=== PATIENT | male | born 1955 | race Caucasian/White ===

== ENCOUNTER 2021-01-25 15:47 | Outpatient (REF) | payer MEDICARE, MEDICAID, SELFPAY ==
--- NOTE | ~2021-01-25 | US_ITS ---
EXAMINATION: ULTRASOUND EXTREMITY NONVASCULAR CLINICAL INFORMATION: Right knee pain in the popliteal fossa. COMPARISON: None TECHNIQUE: Limited imaging through the right popliteal fossa was performed. FINDINGS: There is a 1.3 x 1.0 x 1.3 cm nonvascular hypoechoic lesion in the portal fossa with few septations suggestive of Hernandez's cyst. There is no evidence of aneurysm. US/US extremity nonvascular massey IMPRESSION: 1. 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 2. No evidence of aneurysm.
== END 2021-01-25 15:48 | disposition home or self-care (01) ==
LOC: HO.US 15:47
PROVIDERS: Visit Provider Family Medicine
DX: M25.561 Pain in right knee (principal)
CPT/HCPCS: 76882

== ENCOUNTER 2021-02-28 08:22 | Outpatient (REF) | payer MEDICARE, MEDICAID, SELFPAY ==
--- NOTE | ~2021-02-28 | XR_ITS ---
EXAMINATION: XR KNEE, RIGHT CLINICAL INFORMATION: Knee pain COMPARISON: Knee radiographs August 21, 2018 and July 28, 2018 TECHNIQUE: 3 views of the right knee were obtained in addition to a standing AP view of the left knee. FINDINGS: No fracture or dislocation of the right knee. No suprapatellar joint effusion. There is severely decreased medial joint space height with mildly decreased lateral joint space height. Prominent tricompartmental marginal osteophytes are noted which appear slightly more prominent diffusely then imaging from 2018. Standing AP view of the left knee again demonstrate severe joint space loss of the medial joint compartment with prominent osteophytes, also progressed from 2018. XR/XR knee RT 3V IMPRESSION: Moderate to severe degenerative changes of both knees, most prominent within the medial compartments bilaterally. Degenerative changes demonstrate interval progression from 2018 imaging.
== END 2021-02-28 08:23 | disposition home or self-care (01) ==
LOC: HO.HOSX 08:22
PROVIDERS: Visit Provider Physician Assistant
DX: M17.11 Unilateral primary osteoarthritis, right knee (principal)
CPT/HCPCS: 73562; 99202

== ENCOUNTER 2023-09-16 11:30 | Outpatient (REF) | payer OTHER, SELFPAY ==
[2023-09-16 13:20] LABS: MANUAL DIFF FLAG NO
[2023-09-16 13:44] LABS: Basophils Percent Auto 0.8 % (0-2); Eosinophils Absolute Auto 0.2 X10*3/uL (0.0-0.4); Eosinophils Percent Auto 3.5 % (0-4); Hematocrit 45.5 % (42.0-52.0); Imm Gran Abs Auto 0.01 X10*3/uL (0.00-0.03); Imm Gran Pct Auto 0.2 % (0.0-0.4); Lymphocytes Absolute Auto 1.2 X10*3/uL (1.2-4.9); Lymphocytes Percent Auto 24.5 % (20-40); Mean Corpuscular Hemoglobin 30.7 pg (27.0-33.0); Mean Corpuscular Volume 93.2 fL (80.0-98.0); Mean Platelet Volume 11.9 fL (9.4-12.4); Monocytes Absolute Auto 0.4 X10*3/uL (0.1-1.2); Monocytes Percent Auto 7.2 % (2-11); Neutrophils Absolute Auto 3.1 x10*3/uL (2.0-8.3); Neutrophils Percent Auto 63.8 % (45-73); Platelet Count 181 X10*3/uL (160-400); Red Blood Count 4.88 X10*6/uL (4.60-5.80); Red Cell Distribution Width 13.3 % (11.0-16.0); White Blood Count 4.9 X10*3/uL (4.8-10.8)
[2023-09-16 13:52] LABS: Estimated Average Glucose 103 mg/dL; Hemoglobin A1c % 5.2 % (<6.0)
[2023-09-16 14:03] LABS: Alanine Aminotransferase 12 U/L (0-40); Albumin Level 4.1 g/dL (3.5-5.0); Alkaline Phosphatase 65 U/L (39-117); Anion Gap 10 (12-20); Aspartate Amino Transferase 17 U/L (5-37); Bilirubin Direct 0.3 mg/dL (0.0-0.5); Bilirubin Total 0.8 mg/dL (0.0-1.0); Blood Urea Nitrogen 21 mg/dL (9-16); Calcium 9.8 mg/dL (8.4-10.2); Carbon Dioxide 31 mmol/L (22-29); Chloride 106 mmol/L (96-108); Cholesterol 145 mg/dL (<200); Estimated Glomerular Filt Rate > 60; Glucose Random 101 mg/dL (60-115); HDL Cholesterol 58 mg/dL (>40); LDL Cholesterol Calculated 77 mg/dL (<100); Potassium 4.4 mmol/L (3.3-5.1); Sodium 143 mmol/L (135-145); Total Protein 7.3 g/dL (6.5-8.0); Triglycerides 53 mg/dL (<150)
[2023-09-16 14:22] LABS: TSH reflex Free T4 0.81 uIU/mL (0.32-4.0)
[2023-09-17 07:31] LABS: ~HepC Num1 1.08 S/CO (0.00-0.79); ~Hepatitis C Antibody Reactive (Nonreactive)
[2023-09-19 14:29] LABS: HCV Log PCR <1.18 NOT DETECTED Log IU/mL (NOT DETECTED); HepC Viral Load <15 NOT DETECTED IU/mL (NOT DETECTED)
== END 2023-09-16 11:31 | disposition home or self-care (01) ==
LOC: HO.HHCL 11:30
PROVIDERS: Visit Provider Family Medicine
DX: G47.33 Obstructive sleep apnea (adult) (pediatric) (principal); E78.00 Pure hypercholesterolemia, unspecified; I10 Essential (primary) hypertension; Z11.59 Encounter for screening for other viral diseases; R73.01 Impaired fasting glucose; Z13.1 Encounter for screening for diabetes mellitus
CPT/HCPCS: 36415; 80048; 80061; 80076; 83036; 84443; 85025; 86803; 87522

== ENCOUNTER 2025-01-14 09:16 | Outpatient (REF) | payer MEDICAID, SELFPAY ==
--- OUTSIDE RECORDS SUMMARY | 2025-01-14 10:45 | XMS_ITS | Clinical Summary ---
Author Organization [employer] Address [address] [facility] [address] [place] [address] Care Team Providers Care Manager Heavy Equipment Name Role Phone Casandra Buckner MD Primary Care Provider +1- [phone] Allergies Active Allergy Reactions Criticality Noted Date Comments Penicillins Other reaction(s): rash Medications acetaminophen (Tylenol 8 Hour) 650 MG ER tablet REPORTS PURCHASING OTC Active ketorolac (Acular) 0.5 % ophthalmic solution PLACE 1 DROP IN THE AFFECTED EYE THREE TIMES DAILY DIRECTED START 2 DAYS BEFORE YOUR SURGERY TAPER DIRECTED 11/19/19 24 Active atorvastatin (Lipitor) 40 MG tabletIndication s:Hypercholester olemia TAKE 1 TABLET BY MOUTH AT BEDTIME 90 tablet 3 10/21/20 24 Active lisinopril 40 MG tabletIndication s:Primary hypertension TAKE 1 TABLET BY MOUTH EVERY MORNING 90 tablet 3 10/21/20 24 Active terazosin (Hytrin) 2 MG capsuleIndicatio ns:Benign prostatic hyperplasia without lower urinary tract symptoms TAKE 1 CAPSULE BY MOUTH AT BEDTIME 90 capsule 3 10/21/20 24 Active Blood Pressure Monitoring (Blood Pressure Monitor Automat) deviceIndication s:Primary hypertension Check bp twice a week Largest cuff please 1 each 01/14/20 25 Active Blood Pressure kitIndications:P rimary hypertension Check blood pressure three times a week Largest cuff 1 kit 01/14/20 25 Active Blood Pressure Monitoring (Blood Pressure Monitor Automat) deviceIndication s:Primary hypertension Check bp twice a week 1 each 01/14/20 25 025 Discontinued Blood Pressure Monitoring (Blood Pressure Monitor Automat) deviceIndication s:Primary hypertension Check bp twice a week Largest cuff please 1 each 01/14/20 025 Discontinued Active Problems Problem Noted Date Diagnosed Date Dietary counseling 01/13/2025 Assessment & Plan (01/13/2025 3:16 PM EDT): Dietary Recommendations: Fruits, vegetables, whole grains, protein foods, and fat-free or low-fat dairy products are healthy choices. Eat different types of protein foods in your diet. This can include seafood, lean meats, poultry, beans, peas, lentils, nuts, seeds, soy products, and eggs. Limit foods and beverages higher in added sugars, saturated fat, and sodium. Exercise counseling 01/13/2025 Assessment & Plan (01/13/2025 3:16 PM EDT): Exercise Recommendations: At least 150 minutes of moderate-intensity physical activity per week, or an equivalent combination of moderate- and vigorous-intensity activity Pre-op exam 11/28/2023 Assessment & Plan (11/28/2023 8:32 PM EST): Patient is acceptable risk for surgery. Ok to proceed to operating room without further risk stratification. Other specified health status 09/10/2023 Overview (01/13/2025): -next physical exam due after 01/13/26 -eye care facilitated by none [facility] with Dr. Dillon Clifton -dental home is none, encourage to call [facility] -health care proxy paper work on file 11/29/23 Assessment & Plan (01/13/2025 3:16 PM EDT): -next physical exam due after 01/13/26 -eye care facilitated by gab [facility] with Dr. Dillon Clifton -dental home is none, encourage to call [facility] -health care proxy paper work on file 11/29/23 Assessment & Plan (09/16/2023 11:07 AM EST): -next physical exam due after 09/16/2024 -eye care facilitated by none, referral done 09/16/23 -dental home is none, encourage to call [facility] BPH (benign prostatic hyperplasia) 09/10/2023 Overview (01/13/2025): -well controlled Assessment & Plan (01/13/2025 3:24 PM EDT): -well controlled Chronic pain of right knee 05/18/202209/10 Dyslipidemia 05/18/2022 09/10/2023 Overview (01/13/2025): Lab Results Component Value Date CHOL 145 09/16/2023 TRIG 53 09/16/2023 HDL 58 09/16/2023 LDLCHOLCAL 77 09/16/2023 -continue lifestyle modifications -rechecking FLP and HFP 01/13/25 Assessment & Plan (01/13/2025 3:25 PM EDT): Lab Results Component Value Date CHOL 145 09/16/2023 TRIG 53 09/16/2023 HDL 58 09/16/2023 LDLCHOLCAL 77 09/16/2023 -continue lifestyle modifications -rechecking FLP and HFP 01/13/25 Assessment & Plan (09/16/2023 12:07 PM EST): Lab Results Component Value Date CHOLESTEROL 131 01/23/2021 LDLCHOL 63 01/23/2021 HDLCHOL 54 01/23/2021 CHOLHDLRAT 2.4 01/23/2021 -continue lifestyle modifications 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 Kelsey 2018 Assessment & Plan (09/16/2023 10:08 AM EST): Venous stasis dermatitis esolved with betamethasone diproprionate 0.05% ointment to be applied BID for 2 weeks and underwent (left saphenous vein ablation) left leg vein ablation with Dr. Kelsey 2018 Impaired fasting glucose 09/09/2014 023 Overview (01/13/2025): Lab Results Component Value Date HGBA1C 5.2 09/16/2023 HGBA1C 5.3 01/23/2021 GLUCOSE 101 09/16/2023 -rechecking A1C 01/13/25 Assessment & Plan (01/13/2025 3:26 PM EDT): Lab Results Component Value Date HGBA1C 5.2 09/16/2023 HGBA1C 5.3 01/23/2021 GLUCOSE 101 09/16/2023 -rechecking A1C 01/13/25 Hypertension 07/03/2012 09/10/2023 Overview (01/13/2025): -Blood pressure is not at goal, likely since pt did not take his meds this morning 01/13/25 -Given new BP monitor 01/13/25 -Referred to [facility] with our PharmDYAMILE 01/13/25 -Continue lifestyle modifications -Continue current medications -Ordered routine labs 01/13/25 Assessment & Plan (01/13/2025 3:29 PM EDT): -Blood pressure is not at goal, likely since pt did not take his meds this morning 01/13/25 -Given new BP monitor 01/13/25 -Referred to Collaborative Drug Therapy Managment Program with our PharmDYAMILE 01/13/25 -Continue lifestyle modifications -Continue current medications -Ordered routine labs 01/13/25 Assessment & Plan (09/16/2023 10:11 AM EST): -Blood pressure is at goal -Continue lifestyle modifications -Continue current medications Class 2 severe obesity due t o excess calories with serious comorbidity and body mass index (BMI) of 38.0 to 38.9 in adult 07/03/2012 09/10/2023 Overview (01/13/2025): Discussed weight, diet, exercise with patient in relation to health conditions. Used motivational interviewing to illicit change talk and established initial goals with patient. Assessment & Plan (01/13/2025 3:17 PM EDT): Discussed weight, diet, exercise with patient in relation to health conditions. Used motivational interviewing to illicit change talk and established initial goals with patient. Obstructive sleep apnea syndrome 07/03/2012 09/10/2023 Overview (01/13/2025): -has not used CPAP for many years, reports machine is not working well -referred back to sleep medicine 01/13/25 Assessment & Plan (01/13/2025 3:23 PM EDT): -has not used CPAP for many years, reports machine is not working well -referred back to sleep medicine 01/13/25 Assessment & Plan (09/16/2023 10:11 AM EST): -tolerating CPAP well Resolved Problems Problem Noted Date Diagnosed Date Resolved Date Hypercholesterolemia 01/13/2025 025 Physical exam 09/16/2023 01/12/2025 Overview (09/16/2023): -Normal growth and development. -Anticipatory guidance discussed. -Preventative care / harm reduction discussed. Assessment & Plan (09/16/2023 10:58 AM EST): -Normal growth and development. -Anticipatory guidance discussed. -Preventative care / harm reduction discussed. Hypercholesterolemia 07/03/2012 09/10/2023 023 Overview (09/16/2023): Lab Results Component Value Date CHOLESTEROL 131 01/23/2021 LDLCHOL 63 01/23/2021 HDLCHOL 54 01/23/2021 CHOLHDLRAT 2.4 01/23/2021 -continue lifestyle modifications Assessment & Plan (09/16/2023 10:09 AM EST): Lab Results Component Value Date CHOLESTEROL 131 01/23/2021 LDLCHOL 63 01/23/2021 HDLCHOL 54 01/23/2021 CHOLHDLRAT 2.4 01/23/2021 -continue lifestyle modifications Encounters Date Type Department Care Team Description 01/13/2025 2:45 PM EDT Office Visit [facility] [address] [place] [phone] Casandra Buckner MD Primary hypertension (Primary Dx); Obstructive sleep apnea syndrome; Dyslipidemia; Class 2 severe obesity due to excess calories with serious comorbidity and body mass index (BMI) of 38.0 to 38.9 in adult ([facility]); Dietary counseling; Exercise counseling; Other specified health status; Benign prostatic hyperplasia, unspecified whether lower urinary tract symptoms present; Impaired fasting glucose 01/13/2025 Travel 01/12/2025 Telephone [facility] [address] [place] [phone] Casandra Buckner MD chartprep 01/01/2025 Patient Outreach [facility] [address] [place] [phone] Casandra Buckner MD Pre-visit Planning (SDOH Screening negative and Tobacco screening negative) 11/13/2024 Telephone [facility] [address] [place] [address] Fatoumata [place], [place] January10/21/2024 Refill [facility] [address] [place] [phone] Casandra Buckner MD Hypercholesterolemia; Primary hypertension; Benign prostatic hyperplasia without lower urinary tract symptoms from Last 3 Months Immunizations Name Administration Dates Next Due Hep A, Adult 02/11/2014 Hep B, adult 02/11/2014,09/12/2009,08/10/2009 Influenza injectable quadriv alent IIV4 with preservative 07/28/2018,09/01/2015 Influenza injectable quadriv alent preservative free 11/29/2023 Influenza, IIV3, injectable 09/09/2014, 1 Influenza, Split (incl. jack fied surface antigen) 07/03/2012 Pneumococcal Conjugate PCV 13 09/09/2014 Pneumococcal Conjugate PCV 20 11/29/2023 TD (adult), 2 Lf tetanus tox oid, preservative free, adsorbed 08/10/2009 Tdap 09/16/2023,07/03/2012 Varicella 09/12/2009,08/10/2009 Zoster, Recombinant 11/25/2023,09/23/2023 Family History Medical History Relation Name Comments Diabetes Brother Skin cancer Brother heart problems Brother Diabetes Mother Diabetes Sister Stomach cancer Sister Relation Name Status Comments Brother Mother Sister Social History Tobacco Use Types Packs/Day Years Used Date Smoking Tobacco: Never Smokeless Tobacco: Never Tobacco Cessation:Counseling Given: Not Answered Depression Answer Date Recorded Patient Health Questionnaire-9 Score 0 01/13/2025 Patient Health Questionnaire-9 Score 0 01/13/2025 Last PHQ-9: Questionnaire Data Not on file 0 01/13/2025 Housing Stability Answer Date Recorded What is your housing situation today? I have mckayla sky 01/01/[address] you li ve. Do you have problems with any of the following? None of the above 01/01/2025 Food Insecurity Answer Date Recorded Within the past 12 months, y ou worried that your food would run out before you got money to buy more: Never True 01/01/2025 Within the past 12 months,th e food you bought just didn't last and you didn't have enough money to get more: Never True Transportation Answer Date Recorded In the past 12 months, has l ack of transportation kept you from medical appts, meetings, work or from getting things needed for daily living? No 01/01/2025 Utilities Answer Date Recorded In the past 12 months, has t he electric, gas, oil or water company threatened to shut off services in your home? No 01/01/2025 Depression Answer Date Recorded Patient Health Questionnaire-2 Score 0 01/13/2025 Internet Access Answer Date Recorded Internet Access Q1 No 01/01/2025 Internet Access Q2 I do not want or need it 12/06 Sex and Gender Information Value Date Recorded Sex Assigned at Male 09/03/2022 10:19 AM EDT Legal Sex Male 10:19 AM EDT Gender Identity Male 09/03/2022 10:19 AM EDT Sexual Orientation Straight 09/03/2022 10 :19 AM EDT Last Filed Vital Signs Vital Sign Reading Time Taken Comments Blood Pressure 154/92 01/13/2025 3:26 PM EDT Pulse 63 01/13/2025 2:41 PM EDT Temperature 36.1 ??C (96.9 ??F) 01/13/2025 2:41 PM ED T Respiratory Rate 20 01/13/2025 2:41 PM EDT Oxygen Saturation 98% 01/13/2025 2:41 PM EDT Inhaled Oxygen Concentration - - Weight 117 kg (259 lb) 01/13/2025 2:41 PM EDT Height 174 cm (5' 8.5 ) 01/13/2025 2:41 PM EDT Body Mass Index 38.81 01/13/2025 2:41 PM EDT Plan of Treatment Health Maintenance Due Date Last Done Comments CT Colonography 1955 FIT DNA/Cologuard 1955 FIT 1955 FOBT 1955 Sigmoidoscopy 1955 Influenza Vaccine (#1) 2025 , 07/28/2018, 09/01/2015, Additional history exists Postponed from 07/05/2024 (Patient Refused) SDOH Screening 01/01/2026 01/01/2025 Alcohol/Substance Use Screening 01/13/2026 01/13/2025 COVID-19 Vaccine ( season) 2026 02/03/2021, 01/06/2021 Postponed from 07/05/2024 (Patient Refused) Depression Screening 01/13/2026 01/13/2025, 01/14/20 Tobacco Screening 01/13/2026 01/13/2025 Colonoscopy 12/05/2027 12/05/2017 Colorectal Cancer Screening 12/05/2027 Lipid Panel 09/16/2028 09/16/2023, 01/23/2021 RSV Patients and Patients Aged 60 years or older (1 - 1-dose 75+ series) 2030 DTaP/Tdap/Td Vaccines (3 - Td or Tdap) 09/16/2033 09/16/2023, 07/03/2012, 08/10/2009 Hepatitis A Vaccines Aged Out 02/11/2014 No long er eligible based on patient's age to complete this topic Hepatitis B Vaccines Completed 02/11/2014, 09/12/2009, 08/10/2009 Hepatitis C Screening Completed 09/16/2023, 023 Zoster Vaccines Completed 11/25/2023, 09/23/2023 Pneumococcal Vaccine: 50+ Years Completed 11/29/2023, 09/09/2014 HIB Vaccines Aged Out No longer eligi ble based on patient's age to complete this topic HPV Vaccines Aged Out No longer eligi ble based on patient's age to complete this topic IPV Vaccines Aged Out No longer eligi ble based on patient's age to complete this topic Meningococcal Vaccine Aged Out No eufemia jonathan eligible based on patient's age to complete this topic RSV under 20 months Aged Out No longe r eligible based on patient's age to complete this topic Rotavirus Vaccines Aged Out No longer eligible based on patient's age to complete this topic Procedures Procedure Name Priority Date/Time Associated Diagnosis Comments HEPATITIS C AB W/REFL TO HCV RNA, QN, PCR Routine 09/16/2023 11:33 AM EST Encounter for hepatitis C screening test for low risk patient LIPID PANEL, STANDARD Routine 09/16/2023 11:33 AM EST Hypercholesterolemi a HM COLONOSCOPY Routine 12/05/2017 from Last 3 Months or Most Recently Relevant to Health Maintenance Results * (ABNORMAL) Hepatitis C Antibody with Reflex to HCV, RNA, Quantitative, Real- Time PCR (09/16/2023 11:33 AM EST) Hepatitis C Antibody Reactive( A) Nonreactive [facility] Comment:Presumptive evidence of antibodies to HCV. Blood Venous blood specimen / Unknown 09/16/2023 11:33 AM EST 09/16/2023 1:16 PM EST us Casandra Buckner MD LAB BLOOD ORDERABLES Final Result [facility] [address] [place] [phone] * Lipid Panel, Standard (09/16/2023 11:33 AM EST) Triglycerides 53 <150 mg/dL [facility] Comment:Desirable Triglyceri de: less than 150 mg/dLBorderline High Triglyceride 150-199 mg/dLHigh Triglyceride: 200-499 mg/dLVery High Triglyceride: greater than or equal to 5OO mg/dL Cholesterol 145 <200 mg/dL [facility] Comment:Desirable Cholestero l: less than 200 mg/dLBorderline High Cholesterol: 200-239 mg/dLHigh Cholesterol: greater than 239 mg/dL LDL Cholesterol Calculated 77 <100 mg/dL [facility] Comment:Desirable LDL: less than 100 mg/dLNear Optimal/Above Optimal LDL: 110- 129 mg/dLBorderline High LDL: 130-159 mg/dLHigh LDL: 160-189 mg/dLVery High LDL: greater than or equal to 190 mg/dL HDL Cholesterol 58 >40 mg/dL [facility] Comment:Desirable HDL: great er than 40 mg/dL Note: This HDL assay may give artificially low results in patients with liver disease. Blood Venous blood specimen / Unknown 09/16/2023 11:33 AM EST 09/16/2023 1:16 PM EST Casandra Buckner MD LAB BLOOD ORDERABLES Final Result [facility] [address] [place] [phone] * Colonoscopy (12/05/2017) Colonoscopy diverticulosis with Dr. Li Historical Provider HEALTH MAINTENANCE Final Result from Last 3 Months or Most Recently Relevant to Health Maintenance [place] [address] [address] [place] [address] MEDICARE [facility]SN [facility] Care Teams Manager Heavy Equipment Relationship Specialty Start Date End Date [place], [place] Casandra [address] [place] [phone] PCP - General Family Medicine 11/04/18
--- OUTSIDE RECORDS SUMMARY | 2025-01-14 10:45 | XMS_ITS | Encounter Summary ---
Author Organization [employer] Address [address] [place] [address] Care Team Providers Care Tire Inspector Name Role Phone Casandra Buckner MD Primary Care Provider +1- [phone] Encounter Details Date Type Department Care Team (Latest Contact Info) Description 01/13/2025 Travel Social History Tobacco Use Types Packs/Day Years Used Date Smoking Tobacco: Never Smokeless Tobacco: Never Depression Answer Date Recorded Patient Health Questionnaire-9 [...] Orientation Straight 09/03/2022 10 :19 AM EDT documented as of this encounter Plan of Treatment Not on file documented as of this encounter Visit Diagnoses Not on filedocumented in this encounter Additional Health Concerns Assessment Noted Time PHQ-9 Depression Total Score: 0 01/14/20 25 2:43 PM EDT documented as of this encounter Care Teams Tire Inspector Relationship Specialty Start Date End Date Casandra Buckner MD [address] [place] [phone] PCP - General Family Medicine 11/04/18 documented as of this encounter
--- OUTSIDE RECORDS SUMMARY | 2025-01-14 10:45 | XMS_ITS | Encounter Summary ---
Author Organization [employer] Address [address] [facility] [address]t [place] [address] Care Team Providers Care Wardrobe Supervisor Name Role Phone Casandra Buckner MD Primary Care Provider +1- [phone] Reason for Visit * Reason Onset Date Comments chartprep 01/12/2025 Encounter Details Date Type Department Care Team ([facility] st Contact Info) Description 01/12/2025 Telephone [facility] [address] [place], [place] [phone] Casandra Buckner MD [address] [place], [place] [phone] chartprep Social History Tobacco Use Types Packs/Day Years [...] AM EDT documented as of this encounter Miscellaneous Notes * Telephone Encounter - Lori Bay [place] - 01/12/2025 2:15 PM EDT ..Chart Prep Labs: not applicable Images: not applicable Vaccines due: Covid Due and Flu Due Referrals: Not Applicable Screenings: Not Applicable Overdue care gaps: SDOH and PHQ-9 documented in this encounter Plan of Treatment Not on file documented as of this encounter Visit Diagnoses Not on filedocumented in this encounter Additional Health Concerns Assessment Noted Time PHQ-9 Depression Total Score: 0 09/16/20 23 10:49 AM EST documented as of this encounter Care Teams Wardrobe Supervisor Relationship Specialty Start Date End Date Casandra Buckner MD [address] [place] [phone] PCP - General Family Medicine 11/04/18 documented as of this encounter
--- OUTSIDE RECORDS SUMMARY | 2025-01-14 10:45 | XMS_ITS | Encounter Summary ---
Author Organization [employer] Address [address] [facility] [address] [place] [address] Care Team Providers Care Multiple Resaw Operator Name Role Phone Casandra Buckner MD Primary Care Provider +1- [phone] Reason for Visit * Reason Onset Date Comments Pre-op Visit 04/15/2024 Encounter Details Date Type Department Care Team ([facility] st Contact Info) Description 04/15/2024 Telephone [facility] [address] [place], [place] [phone] Casandra Buckner MD [address] [place], [place] [phone] Pre-op Visit Social History Tobacco Use Types Packs/Day Years Used Date Smoking Tobacco: Never Smokeless Tobacco: Never Depression Answer Date Recorded Patient Health Questionnaire-9 Score 0 09/16/2023 Patient Health Questionnaire-9 Score 0 09/16/2023 Last PHQ-9: Questionnaire Data Not on file 1 11/16/2022 Housing Stability Answer Date Recorded What is your housing situation today? I have mckayla sky 09/16/[address] you li ve. Do you have problems with any of the following? None of the above 09/16/2023 Food Insecurity Answer Date Recorded Within the past 12 months, y ou worried that your food would run out before you got money to buy more: Never True 09/16/2023 Within the past 12 months,th e food you bought just didn't last and you didn't have enough money to get more: Never True Transportation Answer Date Recorded In the past 12 months, has l ack of transportation kept you from medical appts, meetings, work or from getting things needed for daily living? No 09/16/2023 Utilities Answer Date Recorded In the past 12 months, has t he electric, gas, oil or water company threatened to shut off services in your home? No 09/16/2023 Depression Answer Date Recorded Patient Health Questionnaire-2 Score 0 09/16/2023 Sex and Gender Information Value Date Recorded Sex Assigned at Male 09/03/2022 10:19 AM EDT Legal Sex Male 10:19 AM EDT Gender Identity Male 09/03/2022 10:19 AM EDT Sexual Orientation Straight 09/03/2022 10 :19 AM EDT documented as of this encounter Miscellaneous Notes * Telephone Encounter - Pascale Sanders - 04/15/2024 10:46 AM EDT Pt scheduled for Pre op (vitrectomy right eye) on May 08 at 9AM with * Telephone Encounter - Carol Maravilla - 04/15/2024 10:22 AM EDT Date of Surgery: 05/27 Surgical procedure being done: vitrectomy right eye Type of anesthesia: MAC Lab needed: At provider discretion EKG: Yes Surgeon's name: Kasi Pinzon MD, PhD Facility name: [facility] Surgeon's office number: [phone] Surgeon's office fax number: [phone] Contact name; Brigida Last office note from surgeon requested: documented in this encounter Plan of Treatment Not on file documented as of this encounter Visit Diagnoses Not on filedocumented in this encounter Additional Health Concerns Assessment Noted Time PHQ-9 Depression Total Score: 0 09/16/20 23 10:49 AM EST documented as of this encounter Care Teams Multiple Resaw Operator Relationship Specialty Start Date End Date Casandra Buckner MD [address] [place] [address] PCP - General Family Medicine 11/04/18 documented as of this encounter
--- OUTSIDE RECORDS SUMMARY | 2025-01-14 10:45 | XMS_ITS | Encounter Summary ---
Author Organization [place] ([facility] Address [address] [place] [address] [address] [place] [address] Care Team Providers Care Product Development Name Role Phone Casandra Buckner MD Primary Care Provider +1- [phone] Reason for Referral * Consultation (Routine) - Authorized Specialty Diagnoses / Procedures Referred By Marc dejesus Referred To Contact Pharmacy Diagnoses Primary hypertension Casandra Buckner MD [address] [place] [address] Phone: tel: fax: Referral ID Status Reason Start Date Expiration Date Visits Requested Visits Authorized [id number] Authorized Consult and Treat 01/13/2025 01/13/2026 6 6 * Consultation (Routine) - Authorized Specialty Diagnoses / Procedures Referred By Marc dejesus Referred To Contact Sleep Medicine Diagnoses Obstructive sleep apnea syndrome Casandra Buckner MD [address] [place] [address] Phone: tel: fax: Sleep Medicine Service [facility] [address], [address] [place] [address] Phone: tel: fax: Referral ID Status Reason Start Date Expiration Date Visits Requested Visits Authorized [id number] Authorized Specialty Services Required 01/13/2025 01/13/2026 1 1 Reason for Visit * Reason Comments Annual Exam Encounter Details Date Type Department Care Team (Late st Contact Info) Description 01/13/2025 2:45 PM EDT Office Visit [facility] MEDICINE [address] [facility] [place] [address] Casandra Buckner MD [address] [facility] [place] [place] [address] Primary hypertension (Primary Dx); Obstructive sleep apnea syndrome; Dyslipidemia; Class 2 severe obesity due to excess calories with serious comorbidity and body mass index (BMI) of 38.0 to 38.9 in adult ([facility]); Dietary counseling; Exercise counseling; Other specified health status; Benign prostatic hyperplasia, unspecified whether lower urinary tract symptoms present; Impaired fasting glucose Social History Tobacco Use Types Packs/Day Years [...] AM EDT documented as of this encounter Last Filed Vital Signs Vital Sign Reading [...] Mass Index 38.81 01/13/2025 2:41 PM EDT documented in this encounter Progress Notes * Casandra Buckner MD - 01/13/2025 2:45 PM EDT Sanjana Ernst is a 69 y.o. male with past medical history of hypertension, dyslipidemia and obstructive sleep apnea who presents to the office today for chronic medical conditions and comprehensive annual evaluation. BP slightly elevated in clinic today. Pt reports he has not been checking his BP at home, but did not take his BP medications today because he had to get up early. He also notes he needs a new BP monitor. Pt reports he is overall doing well. Denies any concerns. He notes he has not been using his CPAP for years and thinks there is something wrong with his machine. Declines COVID and Flu vaccine today. Social History Tobacco: denied Drugs: none Alcohol: No Sexuality: Denies current sexual activity Suicide/Depression: The patient denies any present symptoms of depression or anxiety. Review of Systems Constitutional: Negative for fatigue, fever and unexpected weight change. Respiratory: Negative for cough and shortness of breath. Cardiovascular: Negative for chest pain. Gastrointestinal: Negative for abdominal pain. Genitourinary: Negative for difficulty urinating. Current Outpatient Medications: acetaminophen (Tylenol 8 Hour) 650 MG ER tablet, REPORTS PURCHASING OTC, Disp: , Rfl: atorvastatin (Lipitor) 40 MG tablet, TAKE 1 TABLET BY MOUTH AT BEDTIME, Disp: 90 tablet, Rfl: 3 Blood Pressure kit, Check blood pressure three times a week Largest cuff, Disp: 1 kit, Rfl: 0 Blood Pressure Monitoring (Blood Pressure Monitor Automat) device, Check bp twice a week Largest cuff please, Disp: 1 each, Rfl: 0 ketorolac (Acular) 0.5 % ophthalmic solution, PLACE 1 DROP IN THE AFFECTED EYE THREE TIMES DAILY ASDIRECTED START 2 DAYS BEFORE YOUR SURGERY TAPER DIRECTED, Disp: , Rfl: lisinopril 40 MG tablet, TAKE 1 TABLET BY MOUTH EVERY MORNING, Disp: 90 tablet, Rfl: 3 terazosin (Hytrin) 2 MG capsule, TAKE 1 CAPSULE BY MOUTH AT BEDTIME, Disp: 90 capsule, Rfl: 3 Allergies Allergen Reactions Penicillins Other reaction(s): rash Past Medical History: Diagnosis Date Dyslipidemia 05/18/2022 Lab Results Component Value Date CHOLESTEROL 131 01/23/2021 LDLCHOL 63 01/23/2021 HDLCHOL 54 01/23/2021 CHOLHDLRAT 2.4 01/23/2021 -continue lifestyle modifications Hypercholesterolemia 01/13/2025 Hypertension 07/03/2012 -Blood pressure is at goal -Continue lifestyle modifications -Continue current medications Obstructive sleep apnea syndrome 07/03/2012 -tolerating CPAP well Past Surgical History: Procedure Laterality Date EYE SURGERY Family History Problem Relation Name Age of Onset Diabetes Mother Stomach cancer Sister Diabetes Sister Skin cancer Brother Diabetes Brother Other (heart problems) Brother Objective Visit Vitals BP (!) 154/92 Pulse 63 Temp 96.9 ??F (36.1 ??C) (Temporal) Resp 20 Ht 5' 8.5 (1.74 m) Wt 259 lb (117 kg) SpO2 98% BMI 38.81 kg/m?? Smoking Status Never BSA 2.38 m?? Physical Exam Constitutional: Appearance: Normal appearance. HENT: Right Ear: Tympanic membrane normal. Left Ear: Tympanic membrane normal. Nose: Nose normal. Mouth/Throat: Pharynx: Oropharynx is clear. Eyes: Extraocular Movements: Extraocular movements intact. Pupils: Pupils are equal, round, and reactive to light. Cardiovascular: Rate and Rhythm: Normal rate and regular rhythm. Heart sounds: Normal heart sounds. Pulmonary: Effort: Pulmonary effort is normal. Breath sounds: Normal breath sounds. No wheezing. Abdominal: General: Abdomen is flat. Palpations: Abdomen is soft. Tenderness: There is no abdominal tenderness. Musculoskeletal: General: Normal range of motion. Cervical back: Normal range of motion and neck supple. Lymphadenopathy: Cervical: No cervical adenopathy. Skin: General: Skin is warm and dry. Neurological: General: No focal deficit present. Mental Status: He is alert. Mental status is at baseline. Psychiatric: Mood and Affect: Mood normal. Behavior: Behavior normal. 69 y.o. male annual evaluation. Problem List Items Addressed This Visit Hypertension - Primary -Blood pressure is not at goal, likely since pt did not take his meds this morning 01/13/25 -Given new BP monitor 01/13/25 -Referred to Collaborative Drug Therapy Managment Program with our ShaileshDYAMILE 01/13/25 -Continue lifestyle modifications -Continue current medications -Ordered routine labs 01/13/25 Relevant Medications Blood Pressure Monitoring (Blood Pressure Monitor Automat) device Blood Pressure kit Other Relevant Orders Albumin, Random Urine W/Creatinine Hepatic Function Panel Lipid Panel, Standard Basic Metabolic Panel Referral to Pharmacy CDTM Obstructive sleep apnea syndrome -has not used CPAP for many years, reports machine is not working well -referred back to sleep medicine 01/13/25 Relevant Orders Referral to Sleep Medicine Dyslipidemia Lab Results Component Value Date CHOL 145 09/16/2023 TRIG 53 09/16/2023 HDL 58 09/16/2023 LDLCHOLCAL 77 09/16/2023 -continue lifestyle modifications -rechecking FLP and HFP 01/13/25 Class 2 severe obesity due to excess calories with serious comorbidity and body mass index (BMI) of38.0 to 38.9 in adult ([facility]) Discussed weight, diet, exercise with patient in relation to health conditions. Used motivational interviewing to illicit change talk and established initial goals with patient. Dietary counseling Dietary Recommendations: Fruits, vegetables, whole grains, protein foods, and fat-free or low-fat dairy products are healthychoices. Eat different types of protein foods in your diet. This can include seafood, lean meats, poultry, beans, peas, lentils, nuts, seeds, soy products, and eggs. Limit foods and beverages higher in added sugars, saturated fat, and sodium. Exercise counseling Exercise Recommendations: At least 150 minutes of moderate-intensity physical activity per week, or an equivalent combinationof moderate- and vigorous-intensity activity Other specified health status -next physical exam due after 01/13/26 -eye care facilitated by none [facility] with Dr. Dillon Clifton -dental home is none, encourage to call [facility] -health care proxy paper work on file 11/29/23 BPH (benign prostatic hyperplasia) -well controlled Impaired fasting glucose Lab Results Component Value Date HGBA1C 5.2 09/16/2023 HGBA1C 5.3 01/23/2021 GLUCOSE 101 09/16/2023 -rechecking A1C 01/13/25 Annual Evaluation -Normal growth and development. -Anticipatory guidance discussed. -Preventative care / harm reduction discussed. Follow up in about 6 months (around 07/16/2025) for htn, labs. I, Ayan Justin, am serving as a scribe to document services personally performed by Dr. Kaur, based on the patient's response to questions by provider and providers statements to me. documented in this encounter Miscellaneous Notes * Assessment & Plan Note - Ayan Justin - 01/13/2025 3:26 PM EDTAssociated Problem(s): Impaired fasting glucose Lab Results Component Value Date HGBA1C 5.2 09/16/2023 HGBA1C 5.3 01/23/2021 GLUCOSE 101 09/16/2023 -rechecking A1C 01/13/25 * Assessment & Plan Note - Ayan Justin - 01/13/2025 3:25 PM EDTAssociated Problem(s): Dyslipidemia Lab Results Component Value Date CHOL 145 09/16/2023 TRIG 53 09/16/2023 HDL 58 09/16/2023 LDLCHOLCAL 77 09/16/2023 -continue lifestyle modifications -rechecking FLP and HFP 01/13/25 * Assessment & Plan Note - Ayan Justin - 01/13/2025 3:24 PM EDTAssociated Problem(s): BPH (benign prostatic hyperplasia) -well controlled * Assessment & Plan Note - Ayan Justin - 01/13/2025 3:17 PM EDTAssociated Problem(s): Class 2 severe obesity due to excess calories with serious comorbidity and body mass index (BMI) of 38.0 to 38.9 in adult ([facility]) Discussed weight, diet, exercise with patient in relation to health conditions. Used motivational interviewing to illicit change talk and established initial goals with patient. * Assessment & Plan Note - Ayan Justin - 01/13/2025 3:16 PM EDTAssociated Problem(s): Other specified health status -next physical exam due after 01/13/26 -eye care facilitated by [facility] with Dr. Dillon Clifton -dental home is none, encourage to call [facility] -health care proxy paper work on file 11/29/23 * Assessment & Plan Note - Ayan Justin - 01/13/2025 3:16 PM EDTAssociated Problem(s): Exercise counseling Exercise Recommendations: At least 150 minutes of moderate-intensity physical activity per week, or an equivalent combinationof moderate- and vigorous-intensity activity * Assessment & Plan Note - Ayan Justin - 01/13/2025 3:16 PM EDTAssociated Problem(s): Dietary counseling Dietary Recommendations: Fruits, vegetables, whole grains, protein foods, and fat-free or low-fat dairy products are healthychoices. Eat different types of protein foods in your diet. This can include seafood, lean meats, poultry, beans, peas, lentils, nuts, seeds, soy products, and eggs. Limit foods and beverages higher in added sugars, saturated fat, and sodium. * Assessment & Plan Note - Ayan Justin - 01/13/2025 3:15 PM EDTAssociated Problem(s): Obstructive sleep apnea syndrome -has not used CPAP for many years, reports machine is not working well -referred back to sleep medicine 01/13/25 * Assessment & Plan Note - Ayan Justin - 01/13/2025 3:12 PM EDTAssociated Problem(s): Hypertension -Blood pressure is not at goal, likely since pt did not take his meds this morning 01/13/25 -Given new BP monitor 01/13/25 -Referred to Collaborative Drug Therapy Managment Program with our ShaileshDYAMILE 01/13/25 -Continue lifestyle modifications -Continue current medications -Ordered routine labs 01/13/25 documented in this encounter Plan of Treatment Scheduled Orders Name Type Priority Associated Diagnoses Orde r Schedule Albumin, Random Urine W/Creatinine Lab Routine Primary hypertension Expected: 01/13/2025 (Approximate), Expires: 01/13/2026 Hepatic Function Panel Lab Routine Primary hypertension Expected: 01/13/2025 (Approximate), Expires: 01/13/2026 Lipid Panel, Standard Lab Routine Primary hypertension Expected: 01/13/2025 (Approximate), Expires: 01/13/2026 Basic Metabolic Panel Lab Routine Primary hypertension Expected: 01/13/2025 (Approximate), Expires: 01/13/2026 Scheduled Referrals Name Type Priority Associated Diagnoses Orde r Schedule Referral to Sleep Medicine Outpatient Referral Routine Obstructive sleep apnea syndrome Expected: 01/13/2025 (Approximate), Expires: 01/13/2026 Referral to Pharmacy CD Outpatient Referral Routine Primary hypertension Ordered: 01/13/2025 documented as of this encounter Visit Diagnoses Diagnosis Primary hypertension- Primary Unspecified essential hypertension Obstructive sleep apnea syndrome Obstructive sleep apnea (adult) (pediatric) Dyslipidemia Other and unspecified hyperlipidemia Class 2 severe obesity due to excess calories with serious comorbidity and body mass index (BMI) of 38.0 to 38.9 in adult ([facility]) Dietary counseling Dietary surveillance and counseling Exercise counseling Other specified health status Benign prostatic hyperplasia, unspecified whether lower urinary tract symptoms present Impaired fasting glucose documented in this encounter Additional Health Concerns Assessment Noted Time PHQ-9 Depression Total Score: 0 01/14/20 25 2:43 PM EDT documented as of this encounter Care Teams Product Development Relationship Specialty Start Date End Date Casandra Buckner MD [address] [place] [id number] PCP - General Family Medicine 11/04/18 documented as of this encounter
--- OUTSIDE RECORDS SUMMARY | 2025-01-14 10:45 | XMS_ITS | Encounter Summary ---
Author Organization [employer] Address [address] [facility] [address] [place] [address] Care Team Providers Care Collar Tailor Name Role Phone Casandra Buckner MD Primary Care Provider +1- [phone] Encounter Details Date Type Department Care Team (Late st Contact Info) Description 01/28/2023 Orders Only [facility] [address] [place] [address] Abby Dubon LPN Social History Tobacco Use Types Packs/Day Years Used Date Smoking Tobacco: Never Assessed Sex and Gender Information Value Date Recorded Sex Assigned at Male 09/03/2022 10:19 AM EDT Legal Sex Male 10:19 AM EDT Gender Identity Male 09/03/2022 10:19 AM EDT Sexual Orientation Straight 09/03/2022 10 :19 AM EDT documented as of this encounter Plan of Treatment Not on file documented as of this encounter Procedures Procedure Name Priority Date/Time Associated Diagnosis Comments HEPATITIS C VIRAL RNA, QUANTITATIVE, REAL-TIME PCR Routine 09/16/2023 11:33 AM EST documented in this encounter Results * Hepatitis C Viral RNA, Quantitative, Real-Time PCR (09/16/2023 11:33 AM EST) Hepatitis C Viral Load <15 NOT DETECTED NOT DETECTED IU/mL [facility] HCV Log PCR <1.18 NOT DETECTED NOT DETECTED Log IU/mL [facility] Comment:This test was perfor med using Real-Time Polymerase ChainReaction.Reportable Range: 15 IU/mL to 100,000,000 IU/mL(1.18 Log IU/mL to 8.00 Log IU/mL).The analytical performance characteristics of thisassay have been determined by [employer].The modifications have not been cleared or approved bythe FDA. This assay has been validated pursuant to theCLIA regulations and is used for clinical purposes.For more information on this test, go to:http://education.[employer]/faq/TUC94j4(This link is being provided for informational/educational purposes only.)THIS TEST WAS PERFORMED AT:[employer] [place] [phone] LAW MD 09/16/2023 11:3 3 AM EST 09/17/2023 7:35 AM EST Casandra Buckner MD LAB BLOOD ORDERABLES Final Result [facility] [address] [place] [phone] documented in this encounter Visit Diagnoses Not on filedocumented in this encounter Care Teams Collar Tailor Relationship Specialty Start Date End Date Casandra Buckner MD [address] [place] [phone] PCP - General Family Medicine 11/04/18 documented as of this encounter
--- OUTSIDE RECORDS SUMMARY | 2025-01-14 10:45 | XMS_ITS | Encounter Summary ---
Author Organization [employer] Address [address] [facility] [address] [place] [address] Care Team Providers Care Video Tape Transferrer Name Role Phone Casandra Buckner MD Primary Care Provider +1- [phone] Reason for Visit * Reason Comments Pre-visit Planning SDOH Screening negat alfonso and Tobacco screening negative Encounter Details Date Type Department Care Team ([facility] st Contact Info) Description 01/01/2025 Patient Outreach [facility] MEDICINE [address] [place], [place] [phone] Casandra Buckner MD [address] [place], [place] [phone] Pre-visit Planning (SDOH Screening negative and Tobacco screening negative) Social History Tobacco Use Types Packs/Day Years [...] Recorded Patient Health Questionnaire-2 Score 0 09/16/2023 Internet Access Answer Date Recorded Internet Access Q1 No 01/01/2025 Internet Access Q2 I do not want or need it 12/06 Sex and Gender Information Value Date Recorded Sex Assigned at Male 09/03/2022 10:19 AM EDT Legal Sex Male 10:19 AM EDT Gender Identity Male 09/03/2022 10:19 AM EDT Sexual Orientation Straight 09/03/2022 10 :19 AM EDT documented as of this encounter Progress Notes * Lori Gonzales - 01/01/2025 12:27 PM EST LIZETTE Florentino placed successful outbound call to patient for pre-visit planning. Patient name and confirmed. Patient confirms appt date and time, and has transportation arrangements. Biggest concern for appointment at this time is no concerns for now. Patient advised to bring to appointment a photo id and insurance card. Appropriate screenings completed in anticipation of appointment. documented in this encounter Plan of Treatment Not on file documented as of this encounter Visit Diagnoses Not on filedocumented in this encounter Additional Health Concerns Assessment Noted Time PHQ-9 Depression Total Score: 0 09/16/20 23 10:49 AM EST documented as of this encounter Care Teams Video Tape Transferrer Relationship Specialty Start Date End Date Casandra Buckner MD [address] [place] [address] PCP - General Family Medicine 11/04/18 documented as of this encounter
--- OUTSIDE RECORDS SUMMARY | 2025-01-14 10:45 | XMS_ITS | Encounter Summary ---
Author Organization [employer] [facility] Address [address] [place] [address] [address]t [place] [address] Care Team Providers Care Student Liaison Officer Name Role Phone Casandra Buckner MD Primary Care Provider +1- [phone] Encounter Details Date Type Department Care Team (Late st Contact Info) Description 12/06/2022 Abstract [facility] MEDICINE [address] [place], [place] [phone] Casandra Buckner MD [address] [place], [place] [phone] Social History Tobacco Use Types Packs/Day Years [...] Procedure Name Priority Date/Time Associated Diagnosis Comments COLONOSCOPY Routine 12/05/2017 documented in this encounter Results * Colonoscopy (12/05/2017) Colonoscopy diverticulosis with Dr. Li us Historical Provider HEALTH MAINTENANCE Final Result documented in this encounter Visit Diagnoses Not on filedocumented in this encounter Care Teams Student Liaison Officer Relationship Specialty Start Date End Date Casandra Buckner MD [address] [place], [place] [phone] PCP - General Family Medicine 11/04/18 documented as of this encounter
--- OUTSIDE RECORDS SUMMARY | 2025-01-14 10:45 | XMS_ITS | Encounter Summary ---
Author Organization [employer] Address [address] [facility] [address]t [place] [address] Care Team Providers Care Inventory Assistant Name Role Phone Casandra Buckner MD Primary Care Provider +1- [phone] Reason for Visit * Reason Comments Med Refill Encounter Details Date Type Department Care Team ([facility] st Contact Info) Description 12/05/2023 Refill [facility] MEDICINE [address] [place], [place] [phone] Casandra Buckner MD [address] [place], [place] [phone] Social History Tobacco Use Types Packs/Day Years [...] documented as of this encounter Care Teams Inventory Assistant Relationship Specialty Start Date End Date Casandra Buckner MD [address] [place] [phone] PCP - General Family Medicine 11/04/18 documented as of this encounter
[2025-01-14 12:07] LABS: Creatinine Urine 65.14 mg/dL; Microalbum/Creatinine Ratio Ur 38.3 ug/mg cr (<30)
[2025-01-14 12:20] LABS: Alanine Aminotransferase 20 U/L (0-40); Albumin Level 4.1 g/dL (3.5-5.0); Alkaline Phosphatase 69 U/L (39-117); Anion Gap 9 (12-20); Aspartate Amino Transferase 26 U/L (5-37); Bilirubin Direct 0.4 mg/dL (0.0-0.5); Blood Urea Nitrogen 20 mg/dL (9-16); Calcium 9.7 mg/dL (8.4-10.2); Carbon Dioxide 29 mmol/L (22-29); Chloride 108 mmol/L (96-108); Cholesterol 137 mg/dL (<200); Estimated Glomerular Filt Rate > 60; Glucose Random 93 mg/dL (60-115); HDL Cholesterol 61 mg/dL (>40); LDL Cholesterol Calculated 66 mg/dL (<100); Potassium 4.1 mmol/L (3.3-5.1); Sodium 142 mmol/L (135-145); Total Protein 7.6 g/dL (6.5-8.0); Triglycerides 53 mg/dL (<150)
== END 2025-01-14 09:17 | disposition home or self-care (01) ==
LOC: HO.HHCL 09:16
PROVIDERS: Visit Provider Family Medicine
DX: I10 Essential (primary) hypertension (principal)
CPT/HCPCS: 36415; 80048; 80061; 80076; 82043; 82570